=== PATIENT | male | born 1955 | race Caucasian/White ===

== ENCOUNTER 2019-12-04 11:48 | Emergency (ER) | payer BC, OTHER ==
[2019-12-04 12:15] VITALS: BP 141/85; PULSE 65; TEMP 98.2; BMI 26.6
--- NOTE | 2019-12-04 12:15 | PDOC ---
History of Present Illness - General Stated Complaint: COUGH/ FEVER Time Seen by Provider: 12/04/19 12:06 History Source: Patient Exam Limitations: No Limitations - History of Present Illness Initial Comments: 12/04/19 12:08 Pt is a 64 y/o male who presents to the ED with multiple possible COVID-19 contacts and 15 days of illness. He states he has had productive cough, chills, low grade fever Tmax 99F. He states his sputum was green/yellow and now is clear. 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 He denies any sob or cp. He denies any medical history. Past History - Past Medical History Allergies/Adverse Reactions: Allergies Allergy/AdvReac Type Severity Reaction Status Date / Time codeine AdvReac Verified 12/04/19 12:10 Review of Systems - Review of Systems Comments:: 12/04/19 12:22 Review of Systems Able to Perform ROS?: Yes Constitutional: No: Fever, Chills, Loss of Appetite, Night Sweats, Weakness HEENTM: No: Eye Pain, Vision changes, Ear Pain, Throat Pain, Throat Swelling, Mouth Pain, Difficulty Swallowing Respiratory: No: Shortness of Breath, Wheezing, Positive: Sputum Production, Cough Cardiac (ROS): No: Chest Pain, Chest Tightness, Palpitations, Irregular Heart Beat, Edema ABD/GI: No: Nausea, Vomiting, Abdominal Pain, Diarrhea : No Dysuria, No Hematuria, No Frequency, No Urgency, No Vaginal Discharge/Pain, No Penile Discharge/Pain Musculoskeletal: No: Muscle Pain, Back Pain, Joint Pain, Muscle Weakness, Neck Pain Integumentary: No: Lesions, Rash Neurological: No: Headache, Numbness, Tingling, Weakness, Speech Difficulties *Physical Exam - Physical Exam Physical Exam General Appearance: Nourished, Appropriately Dressed, No Distress HEENT: EOMI, Normal Voice, No Pharyngeal Erythema, No Muffled/Hoarse voice, No Nasal Congestion, No Rhinorrhea, Hearing Grossly Normal Neck: Supple, No Lymphadenopathy (R), No Lymphadenopathy (L), No Rigidity, No Decreased range of motion Respiratory/Chest: Lungs Clear, Normal Breath Sounds. No Respiratory Distress, No Accessory Muscle Use, good air entry b/l, no wheezes/rales/rhonchi Cardiovascular: Regular Rhythm, Regular Rate, S1, S2 Gastrointestinal/Abdominal: Normal Bowel Sounds, Soft. Non-tender, No Guarding, No Rebound, No Rigidity Musculoskeletal: Normal Inspection. No Decreased Range of Motion Extremity: Normal Capillary Refill, Normal Inspection Integumentary: Normal Color, Dry. No Rash Neurologic: skilled trades teacher II-XII NML intact, Fully Oriented, Alert, Normal Mood/Affect, Normal Response Medical Decision Making - Medical Decision Making 12/04/19 12:15 Assessment: Pt is a 64 y/o male with complaint of productive cough with sputum production for the last 15 days. He has not had any fevers. Plan: The patient has been aware that he is low risk for COVID-19. His symptoms have been ongoing for 15 days already and he has been self-quarantining. He has been made aware that he should go home and self-quarantine until he is instructed further by the [facility]. He has been provided the phone numbers for f/u. He has been made aware that he must f/u with his primary doctor as well. He understands and agrees with this treatment and plan and he is stable for discharge. Discharge - Discharge Information Problems reviewed: Yes Clinical Impression/Diagnosis: Cough productive of clear sputum Condition: Stable Disposition: HOME - Follow up/Referral - Patient Discharge Instructions Additional Instructions: You are low risk for COVID-19 (coronavirus). You are to go home and you are instructed to quarantine yourself until you are further instructed by the department of [facility] or the [facility] Hotline. The [facility] may chose to come to your house to test you for the virus. You can also call for an appointment to be tested in the drive-thru in [facility] but you must make an appointment to do so. Be sure to stay away from people who are v bandar young, very old, have underlying medical problems (breathing problems, high blood pressure, diabetes, cancer, immunocompromised). [facility] [phone] Business Hours [phone] After Hours Community Hotline [phone] [facility] [phone] - Post Discharge Activity
== END 2019-12-04 12:53 | disposition home or self-care (01) ==
LOC: JER 11:48
DX: R05 Cough (principal)
CPT/HCPCS: 99282-25